=== PATIENT | male | born 1995 | race Caucasian/White ===

== ENCOUNTER 2016-04-29 02:13 | Observation (INO) | payer OTHER, BC ==
[~2016-04-29] VITALS: Ht 180.3 cm; Wt 74.9 kg
[2016-04-29] VITALS (9 sets, daily range): BP systolic 98–135; BP diastolic 48–78
--- OUTSIDE RECORDS SUMMARY | 2016-04-29 02:24 | XMS REPORT | Continuity of Care Document ---
Author Author [facility] Organization [facility] Address Unknown Phone Unavailable Allergies Active Description Code Type Severity Reaction Onset Reported/Identified Relationship to Patient Clinical Status Yes No Known Allergies NKMA N/A N/A 05/11/2015 Medications Problems Date Dx Coded Attending Type Code Diagnosis Diagnosed By 2015 Desmond Sneed MD Admitting R17 05/18/2015 Jono Bueno MD Final J11.1 Influenza due to unidentified influenza virus with other respiratory manife 05/18/2015 Jono Bueno MD Final R31.9 Hematuria, unspecified 05/18/2015 Jono Bueno MD Reason R50.9 Fever, unspecified 05/18/2015 Jono Bueno MD Final R74.8 Abnormal levels of other serum enzymes 05/28/2015 Desmond Sneed MD Final 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 Visit Date/Time Discharge Status Pt. Type Provider Facility Loc./Unit Complaint [id number] 2015 12:53:00 2015 13:31:00 DIS Inpatient Desmond Sneed MD [facility] on [facility] F4SE Hyperbilirubinemia, Abd Pain [id number] 05/11/2015 01:49:00 2015 04:40:00 DIS Emergency Jono Bueno MD [facility] ED fever
[2016-04-29] MEDS ORDERED: LACTATED RINGERS 1,000 ML IV ONE ×2 (02:25→06:32)
[2016-04-29 02:35] LABS: BILIRUBIN,URINE NEGATIVE (NEGATIVE); KETONES,URINE NEGATIVE (NEGATIVE); LEUKOCYTE ESTERASE ,URINE NEGATIVE (NEGATIVE); NITRITE,URINE NEGATIVE (NEGATIVE); PH,URINE 7 (5-9); PROTEIN,URINE 1+ (NEGATIVE); UROBILINOGEN,URINE NORMAL (NORMAL)
--- NOTE | 2016-04-29 02:35 | ED General ---
General Stated Complaint: UNRESPONSIVE Source of Information: Patient Exam Limitations: No Limitations History of Present Illness Time Seen by Provider: 02:10 Initial Comments Here by EMS with report of being unresponsive. Apparently drank at least a fifth of alcohol or more tonight. He is visiting from [place] reportedly per friends but nobody really knows him well. No reported injury. EMS reports that he was unresponsive on their arrival was severely pinpoint pupils. They did give 2 mg of Narcan without any significant change in mental status. He is drooling but maintaining airway currently. No vomiting currently. Additional friends and brother showed up and report no injury. Conversation with patient' s father indicates no history of surgeries and no known drug allergies. Patient had one other incident with alcohol and his father states that he does not do well with drinking any at all. Timing/Duration: 1-3 Hours Severity: Severe Associated Systoms: Nausea/Vomiting Allergies and Home Medications Allergies Coded Allergies: No Known Drug Allergies (Unverified , 04/29/16) Home Medications Diazepam 5 Mg Tablet #30 (Reported) Ropinirole HCl 0.5 Mg Tablet #53 (Reported) Constitutional: see HPI Gastrointestinal: vomiting Other Unable to complete review of systems due to altered mental status and intoxication Past Hrbvjbt-Wyjlbu-Ecsucu Hx Patient Social History Alcohol Use: Occasionally Uses Recreational Drug Use: No Smoking Status: Never a Smoker Recent Foreign Travel: No Contact w/Someone Who Travel: No Surgeries HX Surgeries: No Respiratory Hx Respiratory Disorders: No Cardiovascular Hx Cardiac Disorders: No Neurological Hx Neurological Disorders: No Genitourinary Hx Genitourinary Disorders: No Gastrointestinal Hx Gastrointestinal Disorders: No Musculoskeletal Hx Musculoskeletal Disorders: No Endocrine Hx Endocrine Disorders: No Psychosocial Hx Psychiatric Problems: Yes (underlying psychiatric disorder that is not specified currently) Reviewed Nursing Assessment Reviewed/Agree w Nursing PMH: Yes Family Medical History Significant Family History: No Pertinent Family Hx Physical Exam Vital Signs Vital Sign - Last 12Hours 04/29/16 02:14 Temp 94.0 Pulse 64 Resp 14 B/P 112/67 O2 Delivery Room Air Capillary Refill : General Appearance: WD/WN Other (unresponsive to verbal) HEENT: TMs Normal Pharynx Normal Other (pinpoint pupils bilateral) Neck: Non Tender Supple Respiratory: Lungs Clear Normal Breath Sounds Cardiovascular: Regular Rate, Rhythm No Murmur Gastrointestinal: Non Tender Soft Back: Normal Inspection No CVA Tenderness No Vertebral Tenderness Extremity: Non Tender No Calf Tenderness Neurologic/Psychiatric: Other (Response to painful stimuli. Moves all 4 extremities.) Skin: Normal Color Warm/Dry Comments Smells of alcohol. Maintaining airway well. Moves all 4 extremities. Responds to painful stimuli. Progress/Results/Core Measures Results/Orders Lab Results Laboratory Tests Test 04/29/16 02:23 Range/Units Acetaminophen Level < 10 L 10-30 UG/ML Alanine Aminotransferase (ALT/SGPT) 15 0-55 U/L Albumin 4.6 H 3.2-4.5 G/DL Alkaline Phosphatase 71 40-136 U/L Anion Gap 13 5-14 MMOL/L Aspartate Amino Transf (AST/SGOT) 20 5-34 U/L BUN/Creatinine Ratio 10 Basophils # (Auto) 0.0 0.0-0.1 10^3/uL Basophils (%) (Auto) 0 0-10 % Blood Urea Nitrogen 10 7-18 MG/DL Calcium Level 8.8 8.5-10.1 MG/DL Carbon Dioxide Level 22 21-32 MMOL/L Chloride Level 108 H 98-107 MMOL/L Creatinine 1.00 0.60-1.30 MG/DL Eosinophils # (Auto) 0.0 0.0-0.3 10^3/uL Eosinophils (%) (Auto) 0 0-10 % Estimat Glomerular Filtration Rate > 60 Glucose Level 145 H 70-105 MG/DL Hematocrit 43 40-54 % Hemoglobin 15.7 13.3-17.7 G/DL Lymphocytes # (Auto) 1.6 1.0-4.0 X 10^3 Lymphocytes (%) (Auto) 25 12-44 % Magnesium Level 2.5 H 1.8-2.4 MG/DL Mean Corpuscular Hemoglobin 34 25-34 PG Mean Corpuscular Hemoglobin Concent 37 H 32-36 G/DL Mean Corpuscular Volume 91 80-99 FL Mean Platelet Volume 10.7 H 7.4-10.4 FL Monocytes # (Auto) 0.4 0.0-1.0 X 10^3 Monocytes (%) (Auto) 6 0-12 % Neutrophils # (Auto) 4.5 1.8-7.8 X 10^3 Neutrophils (%) (Auto) 69 42-75 % Platelet Count 161 130-400 10^3/uL Potassium Level 3.5 L 3.6-5.0 MMOL/L Red Blood Count 4.69 4.35-5.85 10^6/uL Red Cell Distribution Width 12.0 10.0-14.5 % Salicylates Level < 5.0 L 5.0-20.0 MG/DL Serum Alcohol 260 H <10 MG/DL Sodium Level 143 135-145 MMOL/L Total Bilirubin 0.6 0.1-1.0 MG/DL Total Protein 7.0 6.4-8.2 G/DL Ur Tricyclic Antidepressants Screen NEGATIVE NEGATIVE Urine Amphetamines Screen NEGATIVE NEGATIVE Urine Bacteria NEGATIVE /HPF Urine Barbiturates Screen NEGATIVE NEGATIVE Urine Benzodiazepines Screen NEGATIVE NEGATIVE Urine Bilirubin NEGATIVE NEGATIVE Urine Cannabinoids Screen NEGATIVE NEGATIVE Urine Casts NONE /LPF Urine Clarity CLEAR Urine Cocaine Screen NEGATIVE NEGATIVE Urine Color YELLOW Urine Crystals NONE /LPF Urine Culture Indicated NO Urine Glucose (UA) NEGATIVE NEGATIVE Urine Ketones NEGATIVE NEGATIVE Urine Leukocyte Esterase NEGATIVE NEGATIVE Urine Methadone Screen NEGATIVE NEGATIVE Urine Methamphetamines Screen NEGATIVE NEGATIVE Urine Mucus NEGATIVE /LPF Urine Nitrite NEGATIVE NEGATIVE Urine Opiates Screen NEGATIVE NEGATIVE Urine Oxycodone Screen NEGATIVE NEGATIVE Urine Phencyclidine Screen NEGATIVE NEGATIVE Urine Propoxyphene Screen NEGATIVE NEGATIVE Urine Protein 1+ H NEGATIVE Urine RBC NONE /HPF Urine RBC (Auto) 1+ H NEGATIVE Urine Specific Stryker 1.010 L 1.016-1.022 Urine Squamous Epithelial Cells RARE /HPF Urine Urobilinogen NORMAL NORMAL MG/DL Urine WBC NONE /HPF Urine pH 7 5-9 White Blood Count 6.6 4.3-11.0 10^3/uL My Orders Orders-VILMA BROWN MD Acetaminophen (04/29/16 02:25) Alcohol (04/29/16 02:25) Cbc With Automated Diff (04/29/16 02:25) Comprehensive Metabolic Panel (04/29/16 02:25) Drug Screen Stat (Urine) (04/29/16 02:25) Magnesium (04/29/16 02:25) Salicylate (04/29/16 02:25) Ua Culture If Indicated (04/29/16 02:25) Saline Lock/Iv-Start (04/29/16 02:25) Catheter(Urinary) Insert & Ass 03,15 (04/29/16 02:25) Saline Lock/Iv-Start (04/29/16 02:25) Lactated Ringers (Lr 1000 Ml Iv Solution (04/29/16 02:25) Medications Given in ED Current Medications Medications Dose Ordered Sig/Melissa Route Start Time Stop Time Status Last Admin Dose Admin Lactated Ringer's 1,000 ml @ 0 mls/hr Q0M ONCE IV 04/29/16 02:25 04/29/16 02:30 DC 04/29/16 02:38 0 MLS/HR Vital Signs/I&O Vital Sign - Last 12Hours 04/29/16 02:14 Temp 94.0 Pulse 64 Resp 14 B/P 112/67 O2 Delivery Room Air Progress Note : Progress Note Seen and evaluated on arrival by EMS. Second IV established. Normal saline 1 L bolus by EMS. Repeat bolus with 1 L LR. Labs, UA and UDS ordered. Liz catheter initiated. Case discussed with Dr. Gross at 0303 who accepts patient for admission, observation status. I did validate history with father via phone. He is coming from [place] to get him when he is ready for discharge. He will be on his way shortly. Departure Communication Time/Spoke to Admitting Phy: 03:03 Impression Impression: Primary Impression: Alcohol poisoning Qualified Code: T51.91XA - Toxic effect of unspecified alcohol, accidental ( unintentional), initial encounter Disposition: 09 ADMITTED INPATIENT Condition: Stable Decision to Admit Reason: Admit from ER (General) Decision to Admit/Date: Apr 29, 2016 Time/Decision to Admit Time: 03:03 VILMA BROWN MD Apr 29, 2016 02:35
[2016-04-29 02:40] LABS: BASOPHILS % (AUTO) 0 % (0-10); EOSINOPHILS % (AUTO) 0 % (0-10); LYMPHOCYTES # (AUTO) 1.6 X 10^3 (1.0-4.0); LYMPHOCYTES % (AUTO) 25 % (12-44); MEAN CORPUSCULAR HEMOGLOBIN 34 PG (25-34); MEAN CORPUSCULAR HGB CONC 37 G/DL (32-36); MEAN CORPUSCULAR VOLUME 91 FL (80-99); MEAN PLATELET VOLUME 10.7 FL (7.4-10.4); MONOCYTES # (AUTO) 0.4 X 10^3 (0.0-1.0); MONOCYTES % (AUTO) 6 % (0-12); NEUTROPHILS # (AUTO) 4.5 X 10^3 (1.8-7.8); NEUTROPHILS % (AUTO) 69 % (42-75); PLATELET COUNT 161 10^3/uL (130-400); RED BLOOD COUNT 4.69 10^6/uL (4.35-5.85); WHITE BLOOD COUNT 6.6 10^3/uL (4.3-11.0)
[2016-04-29 02:45] LABS: SQUAMOUS EPITHELIAL CELL,UR RARE /HPF
[2016-04-29] MEDS ORDERED: DIAZ5TAB3 (02:47)
[2016-04-29] MEDS ORDERED: ROPI0.5T2 (02:47)
[2016-04-29 02:52] LABS: ALANINE AMINOTRANSFERASE 15 U/L (0-55); ALBUMIN 4.6 G/DL (3.2-4.5); ALCOHOL 260 MG/DL (<10); ANION GAP 13 MMOL/L (5-14); ASPARTATE AMINO TRANSFERASE 20 U/L (5-34); BILIRUBIN,TOTAL 0.6 MG/DL (0.1-1.0); BLOOD UREA NITROGEN 10 MG/DL (7-18); BUN/CREATININE RATIO 10; CALCIUM 8.8 MG/DL (8.5-10.1); CARBON DIOXIDE 22 MMOL/L (21-32); CHLORIDE 108 MMOL/L (98-107); GFR ESTIMATED > 60; GLUCOSE 145 MG/DL (70-105); MAGNESIUM 2.5 MG/DL (1.8-2.4); POTASSIUM 3.5 MMOL/L (3.6-5.0); SALICYLATE < 5.0 MG/DL (5.0-20.0); SODIUM 143 MMOL/L (135-145)
[2016-04-29 03:02] LABS: ACETAMINOPHEN < 10 UG/ML (10-30)
[2016-04-29] MEDS ORDERED: NS IV 1000 ML 1,000 ML ONE (04:35)
[2016-04-29] MEDS ORDERED: NS IV 1000 ML 1,000 ML IV SCH (05:00)
[2016-04-29] MEDS ORDERED: ONDANSETRON 4 MG/2 ML (SDV) Z0FRAN IV PRN (05:00)
[2016-04-29] MEDS ORDERED: FLU TRIvalent (5 YOA+) 2016-17 (AFLURIA) 0.5 ML IM ONE (07:15)
--- NOTE | 2016-04-29 10:16 | Short Stay Summary-Hospitalist ---
HPI History of Present Illness: HPI/Chief Complaint CC: Alcohol poisoning HPI: 20yoCM presented to ED via EMS after being found unresponsive with drinking at a alliance party. Was drooling but maintaining airway on arrival. Admitted to ICU for monitoring given alcohol level of 260. Source: patient, old records Exam Limitations: no limitations Date Seen 04/29/16 Attending Physician Emily Gross Katelyn MD PCP No,Local Physician Referring Physician Date of Admission Apr 29, 2016 at 03:05 Home Medications & Allergies Home Medications Reviewed patient Home Medication Reconciliation Form Allergies Coded Allergies: No Known Drug Allergies (Unverified , 04/29/16) Past Butrvda-Qvmkrc-Euziuz Hx Patient Social History Marrital Status: single Alcohol Use: Occasionally Uses Recreational Drug Use: No Smoking Status: Never a Smoker Physical Abuse Screen: No Sexual Abuse: No Recent Foreign Travel: No Contact w/other who traveled: No Recent Hopitalizations: Yes (MONO PER FRIEND) Recent Infectious Disease Expo: No Seasonal Allergies Seasonal Allergies: Yes Surgeries HX Surgeries: No Respiratory Hx Respiratory Disorders: No Cardiovascular Hx Cardiovascular Disorders: No Neurological Hx Neurological Disorders: No Genitourinary Hx Genitourinary Disorders: No Gastrointestinal Hx Gastrointestinal Disorders: No Musculoskeletal Hx Musculoskeletal Disorders: No Endocrine Hx Endocrine Disorders: No Cancer Hx Cancer: No (UNK, PT UNABLE TO ANSWER AT THIS TIME) Psychosocial Hx Psychiatric Problems: Yes (underlying psychiatric disorder that is not specified currently) Reviewed Nursing Assessment Reviewed/Agree w Nursing PMH: Yes Family Medical History Significant Family History: No Pertinent Family Hx Review of Systems Constitutional: weakness EENTM: no symptoms reported Respiratory: no symptoms reported Cardiovascular: no symptoms reported Gastrointestinal: no symptoms reported Genitourinary: no symptoms reported Skin: no symptoms reported Psychiatric/Neurological: No Symptoms Reported Physical Exam Physical Exam Vital Signs Vital Sign - Last 12Hours 04/29/16 04/29/16 02:14 03:19 Temp 94.0 Pulse 64 Resp 14 B/P 112/67 Pulse Ox 100 O2 Delivery Room Air Capillary Refill : General Appearance: No Apparent Distress WD/WN Eyes: Bilateral Eye EOMI, Bilateral Eye Normal Inspection, Bilateral Eye PERRL Neck: Full Range of Motion Respiratory: Chest Non Tender Lungs Clear Normal Breath Sounds No Accessory Muscle Use No Respiratory Distress Cardiovascular: Regular Rate, Rhythm No Edema No Gallop No Murmur Normal Peripheral Pulses Gastrointestinal: Normal Bowel Sounds No Organomegaly Non Tender Soft Extremity: Normal Capillary Refill Normal Inspection Non Tender No Calf Tenderness No Pedal Edema Neurologic/Psychiatric: Alert Oriented x3 Normal Mood/Affect Skin: Normal Color Warm/Dry Results Results/Procedures Lab Laboratory Tests 04/29/16 02:23 Short Stay Diagnosis Discharge Diagnosis-Short Stay Admission Diagnosis Alcohol Poisoning, hypokalemia, hyperglycemia Final Discharge Diagnosis Alcohol Poisoning, hypokalemia, hyperglycemia Conclusion Plan Admitted overnight for AMS secondary to alcohol poisoning. Mentation has improved significant overnight. Is alert and oriented x4. Will ADAT. Will obtained serum ETOH level at noon to ensure below legal driving limit prior to discharge. Diagnosis/Problems Diagnosis/Problems (1) Alcohol poisoning Onset Date: ~ 04/29/2016 Status: Acute Qualifiers: Qualified Code: T51.91XA - Toxic effect of unspecified alcohol, accidental ( unintentional), initial encounter Clinical Quality Measures DVT/VTE Risk/Contraindication: RFS Level Per Nursing on Admit: 0=No Risk/No VTE PPX SHERINE JOY MD Apr 29, 2016 10:16
--- NOTE | 2016-04-29 10:41 | Discharge Instructions ---
Discharge Instructions Discharge Medications New, Converted or Re-Newed RX: Other (No new meds.) Patient Instructions Patient Instructions Stop drinking alcohol excessively. Activity & Diet Discharge Diet: No Restrictions Activity as Tolerated: Yes SHERINE JOY MD Apr 29, 2016 10:41
[2016-04-29] MEDS ORDERED: IBUPROFEN 600 MG (MOTRIN) TAB PO NR (13:53)
== END 2016-04-29 10:24 | disposition home or self-care (01) ==
LOC: ER 02:21 → ICU 03:05 → UNDOADMOB 03:05 → ICU 04:10 → UNDODISOB 14:55
PROVIDERS: ADMIT Internal Medicine; ATTEND Internal Medicine
DX: T51.0X1A Toxic effect of ethanol, accidental (unintentional), initial encounter (principal); F10.929 Alcohol use, unspecified with intoxication, unspecified; Y90.8 Blood alcohol level of 240 mg/100 ml or more; E87.6 Hypokalemia; R73.9 Hyperglycemia, unspecified
CPT/HCPCS: 36415; 80053; 80306; 80320; 80329; 81000; 83735; 85025; 87081; 96360; G0378